=== PATIENT | male | born 1955 | race Caucasian/White ===

== ENCOUNTER 2017-08-08 19:24 | Emergency (ER) | payer MEDICAID, OTHER ==
[~2017-08-08] VITALS: Ht 175.3 cm; Wt 90.7 kg
[2017-08-08 21:01] VITALS: BP 135/80
[2017-08-08] MEDS ORDERED: TORADOL IM STA (21:24)
[2017-08-08] MEDS ORDERED: BENADRYL IV STA (21:24)
[2017-08-08] MEDS ORDERED: REGLAN IV STA (21:24)
--- NOTE | 2017-08-08 21:28 | ER.PDOC ---
General Chief Complaint: Headache Stated Complaint: HEAD PAIN Time seen by MD: 21:22 Source: patient Exam Limitations: no limitations History of Present Illness Initial Comments Right sided headache for 3 days. No fever. No N/V No headache hx. No relief with motrin Timing/Duration: other (3 days) Severity/Quality: severe Prior Headaches/Recent Trauma: no recent headache/trauma Associated Symptoms: denies symptoms Prior symptoms/Treatment: No Similar symptoms previous, No Recenly Seen, No Treated by Doctor, No Recently Hospitalized Allergies: Coded Allergies: No Known Allergies (Unverified , 08/08/17) Past Medical History Medical History: no pertinent history Surgical History: no surgical history Family History Significant Family History: no pertinent family hx Social History Smoking: greater than 1 pack/day Alcohol Use: none Drug Use: none Reviewed Nursing Reviewed: Vital Signs, Abn. Noted, Nursing Assessment Review of Systems Constitutional: no symptoms reported Eyes: no symptoms reported Ears, Nose, Mouth, Throat: nose discharge, throat pain Respiratory: no symptoms reported, other (Patient has has some sinus like symptoms off and on for several weaks. ) Cardiovascular: no symptoms reported Gastrointestinal: no symptoms reported Genitourinary: no symptoms reported Musculoskeletal: no symptoms reported Skin: no symptoms reported Psychiatric/Neurological: headache, other (No focal neuologic symptoms) Results/Orders Results/Orders Laboratory Tests Test 08/08/17 22:45 White Blood Count 6.1 10^3/uL (4.5-11.0) Red Blood Count 4.56 10^6/uL (4.50-5.90) Hemoglobin 14.8 g/dL (13.9-16.3) Hematocrit 44.2 % (37.0-53.0) Mean Corpuscular Volume 96.9 fL (78-100) Mean Corpuscular Hemoglobin 32.5 pg (26-34) Mean Corpuscular Hemoglobin Concent 33.5 g/dL (33-37) Red Cell Distribution Width 12.9 % (11.5-14.5) Platelet Count 243 10^3/uL (150-400) Mean Platelet Volume 9.6 fL (7.8-11.0) Neutrophils (%) (Auto) 52.7 % (41.0-85.0) Lymphocytes (%) (Auto) 33.9 % (24.0-44.0) Monocytes (%) (Auto) 11.1 % (5.0-12.0) Neutrophils # (Auto) 3.2 10^3/uL (1.8-7.7) Lymphocytes # (Auto) 2.1 10^3/uL (1.0-4.8) Monocytes # (Auto) 0.7 10^3/uL (0.3-0.8) Absolute Immature Granulocyte (auto 0.02 10^3 u/L (0-2) Eosinophils % 1.3 % (0.0-5.0) Basophils % 0.7 % (0.0-0.2) Basophils # 0.0 10^3/uL (0.0-0.1) Eosinophil Count 0.1 10^3/uL (0.0-0.2) Prothrombin Time 9.6 SEC (9.8-11.9) Prothrombin Time INR (Non-Therap) 1.0 Sodium Level 140 mmol/L (132-145) Potassium Level 3.8 mmol/L (3.6-5.2) Chloride Level 103.0 mmol/L (96-109) Carbon Dioxide Level 26.7 mmol/L (20.0-32) Anion Gap 14.1 Blood Urea Nitrogen 14 mg/dL (7-18) Creatinine 0.82 mg/dL (0.59-1.40) Estimated GFR () 116.0 (>/=60) BUN/Creatinine Ratio 17.0 Glucose Level 228 mg/dL (70-110) Calcium Level 9.7 mg/dL (8.4-10.5) Total Bilirubin 0.3 mg/dL (0.2-1.0) Aspartate Amino Transf (AST/SGOT) 27 U/L (0-35) Alanine Aminotransferase (ALT/SGPT) 60 U/L (12-78) Alkaline Phosphatase 82 U/L (50-136) Total Protein 8.1 g/dL (6.4-8.2) Albumin 3.5 g/dL (3.4-5.0) Globulin 4.6 Percent Immature Gran (Cell Imm) 0.30 % (0.00-0.50) Administered Medications Medications (Trade) Dose Ordered Sig/Panchito Route PRN Reason Start Time Stop Time Status Last Admin Dose Admin Metoclopramide HCl (Reglan) 10 mg STAT STAT IV 08/08/17 21:24 08/08/17 21:25 UNV 08/08/17 21:56 Diphenhydramine HCl (Benadryl) 25 mg STAT STAT IV 08/08/17 21:24 08/08/17 21:25 UNV 08/08/17 21:56 Ketorolac Tromethamine (Toradol) 30 mg STAT STAT IM 08/08/17 21:24 08/08/17 21:25 UNV 08/08/17 21:48 Hydromorphone HCl (Dilaudid) 0.5 mg STAT STAT IV 08/08/17 22:39 08/08/17 22:44 DC 08/08/17 22:46 Ondansetron HCl (Zofran) 4 mg STAT STAT IV 08/08/17 22:39 08/08/17 22:44 DC 08/08/17 22:46 Progress Progress Patient much better following meds. Wants to go home to [place]. Leaving in the morning. Discussed CT findings at length with patient and need for urgent follow up with brain MRI when he gets back. Will treat for maxiallry sinusitis and send with CT copy EKG/XRAY/CT/US CT Comments: low density area left frontal lobe. possible etiologies infection or neopl Departure Time of Disposition: 00:14 Disposition: 01 HOME, SELF-CARE Impression: Primary Impression: Intracranial space-occupying lesion on diagnostic imaging Additional Impressions: Maxillary sinusitis Right-sided headache Condition: Improved Patient Instructions: Sinusitis, [id number] Additional Instructions: You need to call your doctor as soon as you get home to arrange follow up. If your headache comes back or gets worse you should go to the nearest ER and bring the CT copy with you. Duration or Time Spent with Pa: 60 FORE,DEVAN Atkins MD Aug 08, 2017 21:28
[2017-08-08] MEDS ORDERED: NS 50ML 50 ML IV ONE (21:30)
[2017-08-08] MEDS ORDERED: TORADOL ONE (21:30)
[2017-08-08] MEDS ORDERED: BENADRYL ONE (21:30)
--- NOTE | 2017-08-08 21:50 | NUR ---
CT LISA AT BEDSIDE TO TAKE PATIENT TO CT
--- NOTE | 2017-08-08 21:55 | NUR ---
CT PATIENT BACK FROM CT, CONNECTED TO BEDSIDE MONITOR.
--- NOTE | 2017-08-08 21:56 | NUR ---
PAIN PATIENT DEMANDING I GET THE PHYSICIAN TO GIVE HIM SOMETHING DIFFRENT FOR PAIN. "THIS STUFF AINT WORKING." EXPLAINED THAT IM INJECTIONS TAKE 30-45 MINUTES FOR DESIRED EFFECTS AND IT WILL UNFORTUNATELY TAKE SOME MORE TIME. PATIENT STATES "I CAN'T WAIT, GET ME SOMETHING DIFFERENT." DR. BURCH NOTIFIED. STATES HE WILL SEE PATIENT SHORTLY.
--- NOTE | 2017-08-08 21:59 | NUR ---
PAIN DR BURCH AT BEDSIDE SPEAKING WITH PATIENT REGARDING PAIN MEDICATION ADMINISTERED. STATED "I KNOW YOU WANT IMMEDIATE RESULTS AND I WISH IT WORKED THAT WAY, UNFORTUNATELY IN ORDER TO ENSURE WE ARE SAFELY TAKING CARE OF YOUR PAIN IT WILL TAKE 30-45 MINUTES FOR YOUR PAIN TO BE RELIEVED." PATIENT SILENT, HEAD DOWN. DENIES FURTHER QUESTIONS OR CONCERNS AT THIS TIME.
--- NOTE | 2017-08-08 22:21 | DIREP ---
PROCEDURE:CT HEAD OR BRAIN W/O CONTRAST COMPARISON:None. INDICATIONS:right sided headache for 3 days TECHNIQUE:CT images were created without intravenous contrast. FINDINGS: VENTRICLES:The ventricles are normal in size and configuration. CEREBRUM:Low density is seen in the left frontal lobe, image 10 series 2. This appears to spare the cortex and is not classic in appearance for infarct. While evolving infarct is still in the differential considering this area spares the cortex infection or neoplasm/edema should also be considered. There is also a low-density area in the right centrum semiovale. CEREBELLUM:Negative. BRAINSTEM:Negative. BASAL CISTERNS:Negative. SKULL:Normal. SINUSES:There is a complete opacification the right maxillary sinus. Mucosal thickening seen the right ethmoid air cells. OTHER:None CONCLUSION: 1. Moderate-size area of low density in the left frontal lobe. This area spares the cortex. While evolving infarct is still in the differential considering the hypodensity spares the cortex it is not classic for infarct and other etiologies such as infectious process or edema from neoplasm should be considered. There is also a small low-density area in the right centrum semiovale. MRI with contrast is recommended for further characterization. 2. Complete opacification of the right maxillary sinus. This report was called by telephone at 10:21 pm on August 08, 2017 to Hitesh Gallegos . Dictated by: Rigo Moran MD on 08/08/2017 at 10:12 PM
[2017-08-08] MEDS ORDERED: DILAUDID IV STA (22:39)
[2017-08-08] MEDS ORDERED: ZOFRAN IV STA (22:39)
[2017-08-08] MEDS ORDERED: DILAUDID ONE (22:40)
[2017-08-08] MEDS ORDERED: ZOFRAN ONE (22:41)
[2017-08-08 22:56] LABS: BASOPHIL % 0.7 % (0.0-0.2); EOSINOPHIL # 0.1 10^3/uL (0.0-0.2); EOSINOPHIL % 1.3 % (0.0-5.0); HEMOGLOBIN 14.8 g/dL (13.9-16.3); LYMPHOCYTES # 2.1 10^3/uL (1.0-4.8); LYMPHOCYTES % 33.9 % (24.0-44.0); MEAN CELL HGB 32.5 pg (26-34); MEAN CELL HGB CONCENTRATION 33.5 g/dL (33-37); MEAN CORP VOLUME 96.9 fL (78-100); MEAN PLATELET VOLUME 9.6 fL (7.8-11.0); MONOCYTES # 0.7 10^3/uL (0.3-0.8); MONOCYTES % 11.1 % (5.0-12.0); NEUTROPHIL # 3.2 10^3/uL (1.8-7.7); NEUTROPHILS % 52.7 % (41.0-85.0); RED CELL DISTRIBUTION WIDTH 12.9 % (11.5-14.5); WHITE BLOOD CELL 6.1 10^3/uL (4.5-11.0)
[2017-08-08 23:11] LABS: CALCIUM 9.7 mg/dL (8.4-10.5); CARBON DIOXIDE 26.7 mmol/L (20.0-32)
[2017-08-09] MEDS ORDERED: AUGMENTIN 875-125 TABLET PO STA (00:17)
[2017-08-09] MEDS ORDERED: AUGMENTIN 875-125 TABLET ONE (00:21)
[2017-08-09 00:56] VITALS: BP 135/80
== END 2017-08-09 00:34 | disposition home or self-care (01) ==
LOC: ER 19:24
DX: R90.0 Intracranial space-occupying lesion found on diagnostic imaging of central nervous system (principal); J32.0 Chronic maxillary sinusitis; R51 Headache; R79.1 Abnormal coagulation profile; F17.200 Nicotine dependence, unspecified, uncomplicated
CPT/HCPCS: 36415; 70450; 80053; 85025; 85610; 96372; 96374; 96375; 99285; J1170; J1200; J1885; J2405; J2765

== ENCOUNTER 2017-08-09 11:02 | Emergency (ER) | payer MEDICAID, OTHER ==
[~2017-08-09] VITALS: Ht 175.3 cm; Wt 90.7 kg
--- NOTE | 2017-08-09 11:07 | NUR ---
ARRIVAL PT ARRIVED AMBULATORY TO ER 6 C/O HEAD PAIN. PT SEEN IN ER LAST NIGHT FOR SAME COMPLAINT. EDP NOTIFIED OF PT ARRIVAL.
[2017-08-09 11:18] VITALS: BP 157/112
--- NOTE | 2017-08-09 11:51 | ER.PDOC ---
General Chief Complaint: Headache Stated Complaint: HEAD PAIN Time seen by MD: 11:44 Source: patient Exam Limitations: no limitations History of Present Illness Initial Comments Right side headache for 4 days. Seen in the ED last night but opted to follow up with [facility] PCP in [place]. Was told of the results of [facility] CT scan. Severity/Quality: moderate Prior Headaches/Recent Trauma: no recent headache/trauma Associated Symptoms: denies symptoms Prior symptoms/Treatment: Similar symptoms previous, Recenly Seen, Treated by Doctor Allergies: Coded Allergies: No Known Allergies (Unverified , 08/08/17) Past Medical History Medical History: no pertinent history Surgical History: knee, shoulder, other Social History Smoking: less than 1 pack/day Alcohol Use: none Drug Use: none Review of Systems Constitutional: no symptoms reported Eyes: no symptoms reported Respiratory: no symptoms reported Cardiovascular: no symptoms reported Gastrointestinal: no symptoms reported All Other Systems: Reviewed and Negative Physical Exam General Appearance: No Apparent Distress, WD/WN Head/Eyes: eyes nml inspection, no facial swelling Neck: nml inspection, Supple Cardiovascular: Normal Peripheral Pulses, Regular Rate, Rhythm, No Edema, No Gallop, No JVD, No Murmur Respiratory: chest non-tender, lungs clear, normal breath sounds, no respiratory distress, no accessory muscle use Gastrointestinal: Normal Bowel Sounds, No Organomegaly, No Pulsatile Mass, Non Tender, Soft Back: Normal Inspection, No CVA Tenderness, No Vertebral Tenderness Extremities: Normal Range of Motion, Non-Tender, Normal Inspection, No Pedal Edema, No Calf Tenderness, Normal Capillary Refill Psychiatric: Alert, Oriented x 3 Cranial Nerves: Normal Hearing, Normal Speech, PERRL, Other (No Neurological signs) Coordination/Gait: Normal Gait Motor/Sensory: No Motor Deficit, No Sensory Deficit, No Pronator Drift, Negative Babinski's Sign Skin: Warm/Dry, Normal Color EKG/XRAY/CT/US CT Comments: See full CT head report Departure Time of Disposition: 11:49 Disposition: 02 XFER SHT-TRM HOSP Impression: Primary Impression: Intracranial space-occupying lesion on diagnostic imaging Condition: Stable Referrals: PCP,UNKNOWN (PCP) PRIMARY CARE PROVIDER Comments Transfer to [facility] ED for Dr. Bolton Duration or Time Spent with Pa: 30 mins VENITA MONTGOMERY MD Aug 09, 2017 11:51
[2017-08-09] MEDS ORDERED: DILAUDID IM STA (11:53)
[2017-08-09] MEDS ORDERED: DILAUDID ONE (11:53)
--- NOTE | 2017-08-09 12:16 | NUR ---
PT LEFT DEPT PT LEFT DEPT AT THIS TIME ACCOMPANIED BY . PT GOING DIRECTLY TO [facility] ER VIA POV.
--- NOTE | 2017-08-09 12:16 | NUR ---
REPORT REPORT TO YOLETTE MURRAY. [facility].
[2017-08-09 12:19] VITALS: BP 157/112
== END 2017-08-09 12:16 | disposition short-term general hospital (02) ==
LOC: ER 11:02
DX: R90.0 Intracranial space-occupying lesion found on diagnostic imaging of central nervous system (principal); F17.200 Nicotine dependence, unspecified, uncomplicated
CPT/HCPCS: 96372; 99285; J1170

== ENCOUNTER 2020-01-11 12:27 | Emergency (ER) | payer MEDICARE, MEDICAID ==
[~2020-01-11] VITALS: Ht 175.3 cm; Wt 77.1 kg
[2020-01-11 12:45] VITALS: BP 130/79
--- NOTE | 2020-01-11 12:52 | NUR ---
ARRIVAL PATIENT ARRIVED TO ED4 VIA W/C, PATIENT STATES HE STUBBLED AND FELL A FEW DAYS AGO AND WANTS TO MAKE SURE HIS RIGHT HIP IS OK, ALSO HE HAS BEEN ON LIBRIUM DUE TO DETOXING FROM ALCOHOL STOPPED TAKING IT DUE TO HAVING DOUBLE VISION AND WANT SOMETHING DIFFERENT PRESCRIBED, OSTOMY BAG IS LEAKING AND PATIENT IS REQUESTING SUPPLIES, CAME TO THE ED FOR EVAL, DOCTOR ULISES TO ROOM TO SEE PATIENT.
--- NOTE | 2020-01-11 13:15 | ER.PDOC ---
General Chief Complaint: General Complaint Stated Complaint: COLOSTOMY BAG LEAKING TRAVEL OUT OF US: No Time seen by MD: 13:09 Source: patient Exam Limitations: no limitations History of Present Illness Initial Comments Patient wants colostomy bag changed, he is driving past [place] to [place] and has ran out of the bags. He is also requesting a prescription for Ativan to help him stop alcohol since he drinks heavily. He told me that he has Librium that was prescribed to him but he prefers Ativan. Associated Symptoms: denies symptoms Allergies: Coded Allergies: No Known Allergies (Unverified , 08/08/17) Past Medical History Medical History: cancer, other Surgical History: knee, shoulder, other Social History Alcohol Use: heavy Drug Use: none Review of Systems Constitutional: no symptoms reported Respiratory: no symptoms reported Cardiovascular: no symptoms reported Gastrointestinal: see HPI Musculoskeletal: no symptoms reported All Other Systems: Reviewed and Negative Physical Exam General Appearance: No Apparent Distress, WD/WN Neck: Non-Tender, Full Range of Motion, Supple Respiratory: chest non-tender, lungs clear, normal breath sounds, no respiratory distress CVS: reg rate & rhythm, no murmur, no gallop, pulses nml, nml capillary refill Gastrointestinal: Normal Bowel Sounds, No Organomegaly, No Pulsatile Mass, Non Tender, Other (left colostomy with bag leaking.) Extremities: Normal Range of Motion Neurologic/Psychiatric: disability counselor II-XII NML as Tested Skin: Normal Color Results/Orders Results/Orders Vital Signs Date Time Temp Pulse Resp B/P (MAP) Pulse Ox O2 Delivery O2 Flow Rate FiO2 01/11/20 12:45 98.0 91 18 01/11/20 12:45 98.0 91 18 130/79 (96) 98 Room Air 01/11/20 12:45 98.0 91 18 98 Progress Progress Colostomy bag changed and patient told to continue Librium. Departure Time of Disposition: 13:14 Disposition: 01 HOME, SELF-CARE Impression: Primary Impression: Colostomy care Additional Impression: Colostomy on examination Condition: Stable Referrals: PCP,UNKNOWN (PCP) PRIMARY CARE PROVIDER Additional Instructions: Ostomy supplies Continue Librium F/U with your PCP in 2-3 days Return to ED if any concerns Duration or Time Spent with Pa: 10 min Problem Qualifiers VENITA MONTGOMERY MD Jan 11, 2020 13:15
== END 2020-01-11 13:23 | disposition home or self-care (01) ==
LOC: ER 12:27
DX: K94.03 Colostomy malfunction (principal)
CPT/HCPCS: 99281